=== PATIENT | male | born 1995 | race Caucasian/White ===

== ENCOUNTER 2016-06-07 13:17 | Outpatient (CLI) ==
--- NOTE | 2016-06-07 14:01 | DI ---
EXAM: CHEST FRONTAL AND LATERAL VIEWS HISTORY: Positive TB skin test. COMPARISON: None FINDINGS: Normal heart size and mediastinal contour. No evidence of hilar or paratracheal lymphade nopathy is identified. Lungs are hyperinflated. No evidence of acute infiltrate or pulmonary paren chymal cavitation. No obvious calcification to indicate previous granulomatous inflammation. Bones appear normal. IMPRESSION: No radiographic evidence of active or latent pulmonary tuberculosis.
== END 2016-06-07 13:18 | disposition home or self-care (01) ==
LOC: RAD 13:17
PROVIDERS: ATTEND General Practice
DX: R76.11 Nonspecific reaction to tuberculin skin test without active tuberculosis (principal)